=== PATIENT | male | born 1970 | race Caucasian/White ===

== ENCOUNTER 2017-12-11 14:41 | Emergency (ER) | payer MEDICAID ==
[2017-12-12] MEDS ORDERED: LORA1TAB PO (16:32)
== END 2017-12-11 14:50 | disposition left against medical advice (07) ==
LOC: ER 14:42
DX: Z53.21 Procedure and treatment not carried out due to patient leaving prior to being seen by health care provider (principal)

== ENCOUNTER 2019-04-09 21:08 | Emergency (ER) | payer MEDICAID ==
[~2019-04-09] VITALS: Ht 188 cm; Wt 8.2 kg
[2019-04-09 22:25] VITALS: BP 150/89
== END 2019-04-09 22:26 | disposition home or self-care (01) ==
LOC: ER 21:09
DX: F15.10 Other stimulant abuse, uncomplicated (principal); I10 Essential (primary) hypertension; F41.9 Anxiety disorder, unspecified; F10.99 Alcohol use, unspecified with unspecified alcohol-induced disorder; Z86.19 Personal history of other infectious and parasitic diseases; Z60.2 Problems related to living alone; Z59.0 Homelessness; Z56.0 Unemployment, unspecified; Y90.9 Presence of alcohol in blood, level not specified
CPT/HCPCS: 99281

== ENCOUNTER 2020-04-27 02:17 | Inpatient (IN) | payer MEDICAID ==
[~2020-04-27] VITALS: Ht 188 cm; Wt 88.0 kg
[2020-04-27] MEDS ORDERED: ondansetron/PF 4mg/2ml inj IV ONE (02:30)
[2020-04-27] MEDS ORDERED: normal saline 1000ML IV soln IVB ONE ×2 (02:30→03:20)
[2020-04-27] MEDS ORDERED: LORazepam 2 mg/ml vial IV ONE (02:35)
[2020-04-27 02:56] LABS: EOSINOPHILS % (AUTO) 0.1 % (0-6); MEAN CORPUSCULAR VOLUME 90.4 FL (78-98)
[2020-04-27 02:58] LABS: BASOPHILS # (AUTO) 0.1 X10'3 (0-0.2); BASOPHILS % (AUTO) 0.3 % (0-1); HEMATOCRIT 49.3 % (42.0-52.0); HEMOGLOBIN 16.5 g/dl (14.0-17.9); LYMPHOCYTES # (AUTO) 1.9 X10'3 (1.1-4.8); LYMPHOCYTES % (AUTO) 10.1 % (21-51); MEAN CORPUSCULAR HEMOGLOBIN 30.3 PG (27.0-31.0); MEAN CORPUSCULAR HGB CONC 33.5 g/dL (33.0-36.5); MEAN PLATELET VOLUME 9.2 FL (7.4-10.4); MONOCYTES # (AUTO) 2.1 X10'3 (0-0.9); MONOCYTES % (AUTO) 10.9 % (2-12); NEUTROPHILS # (AUTO) 14.9 X10'3 (1.8-7.7); NEUTROPHILS % (AUTO) 78.6 % (42-75); PLATELET COUNT 387 X10'3 (140-440); RED BLOOD COUNT 5.45 X10'6 (4.70-6.10); RED CELL DISTRIBUTION WIDTH 13.9 % (11.5-14.5)
[2020-04-27 03:13] LABS: ALANINE AMINOTRANSFERASE 58 U/L (12-78); ALBUMIN 5.5 G/DL (3.4-5.0); ALBUMIN/GLOBULIN RATIO 1.3 (1.1-1.5); ALKALINE PHOSPHATASE 94 IU/L (46-116); ANION GAP 14 (8-16); ASPARTATE AMINO TRANSFERASE 111 U/L (10-37); BILIRUBIN,TOTAL 0.5 MG/DL (0.1-1.0); BLOOD UREA NITROGEN 51 MG/DL (7-18); BUN/CREATININE RATIO 11.1 (5.4-32.0); CALCIUM 10.4 MG/DL (8.5-10.1); CHLORIDE 96 MMOL/L (99-107); CREATININE 4.58 MG/DL (0.60-1.10); GLUCOSE 196 MG/DL (70-104); LIPASE 109 U/L (73-393); POTASSIUM 4.1 MMOL/L (3.5-5.1); SODIUM 136 MMOL/L (135-145); TOTAL CARBON DIOXIDE 25.8 MMOL/L (24-32); TOTAL PROTEIN 9.8 G/DL (6.4-8.2); eGFR 14 ML/MIN
--- NOTE | 2020-04-27 03:45 | NUR ---
pt returned from ct. pt talking nonstop and is restless. he is polite and coopeerative.
[2020-04-27 04:48] LABS: URINE AMPHETAMINE SCREEN POSITIVE (Neg); URINE BARBITUATE SCREEN NEGATIVE (Neg); URINE BENZODIAZEPINES SCREEN NEGATIVE (Neg); URINE CANNABINOID SCREEN POSITIVE (Neg); URINE COCAINE SCREEN NEGATIVE (Neg); URINE METHADONE SCREEN NEGATIVE (Neg); URINE OPIATE SCREEN NEGATIVE (Neg); URINE PHENCYCLIDINE SCREEN NEGATIVE (Neg)
[2020-04-27] MEDS ORDERED: TRAZ-251 PO (04:55)
--- NOTE | 2020-04-27 04:58 | NUR ---
dr. monroy at bedside for admission. repeat labs drawn.
[2020-04-27] MEDS ORDERED: magnesium hydroxide 30ml (MOM) UD suspension PO PRN (05:15)
[2020-04-27] MEDS ORDERED: LORazepam 2 mg/ml vial IV PRN (05:15)
[2020-04-27] MEDS ORDERED: acetaminophen 325mg tablet PO PRN (05:15)
[2020-04-27] MEDS ORDERED: mag hydrox/Alum hydrox/simeth 30ml oral suspension PO PRN (05:15)
[2020-04-27] MEDS ORDERED: ondansetron/PF 4mg/2ml inj IV PRN (05:15)
--- NOTE | 2020-04-27 06:08 | NUR ---
PT ARRIVED ON THE FLOOR AT 0545 VIA W/C AND ONE ATTENDANT. PT IS "LOOPY" TALKING AND GIGGLING WITH LOUD VOICE. PT STATES FEELING NAUSEA, NO VOMITING AT THIS POINT. LEFT THE ROOM FOR LESS THAN A MINUTE AND CAME BACK TO FIND THE PT IS SOUNDLY SNORING/SLEEPING. THE PT STATES THAT HE SMOKED METH A COUPLE DAYS AGO. LABS ARE NOT BACK YET ON TOXICOLOGY. PT IS ADMITTED FOR JHOAN, AND ALSO REPORTED HAVING MORE THAN THREE DIARRHEA EPISODES. TWO AT HOME AND TWO AT HOSPITAL. WAS GIVEN ZOFRAN AND ATIVAN PER REPORT RN. PT ADMITS TO BEING AN ADDICT MOST OF HIS LIFE OF SOME KIND OR ANOTHER. LACTIC IS PENDING. CT OF ABD REPORTS POSSIBLE GASTRIC OBSTR. WILL CONTINUE TO MONITOR. REPORT REC'D FROM AQUILINO BAZAN. IN THE ED. REPORT GIVEN TO AQUILINO LOPES. DAY SHIFT.
[2020-04-27] MEDS: heparin, porcine 5000 units/ml vial SQ SCH ×2 (08:00→19:37)
[2020-04-27 10:00] VITALS: BP 142/74
[2020-04-27 15:58] LABS: BASOPHILS # (AUTO) 0.1 X10'3 (0-0.2); BASOPHILS % (AUTO) 0.9 % (0-1); EOSINOPHILS # (AUTO) 0.1 X10'3 (0-0.9); EOSINOPHILS % (AUTO) 0.7 % (0-6); HEMATOCRIT 40.8 % (42.0-52.0); HEMOGLOBIN 13.6 g/dl (14.0-17.9); LYMPHOCYTES # (AUTO) 1.5 X10'3 (1.1-4.8); LYMPHOCYTES % (AUTO) 15.9 % (21-51); MEAN CORPUSCULAR HEMOGLOBIN 30.3 PG (27.0-31.0); MEAN CORPUSCULAR HGB CONC 33.4 g/dL (33.0-36.5); MEAN CORPUSCULAR VOLUME 90.7 FL (78-98); MEAN PLATELET VOLUME 9.1 FL (7.4-10.4); MONOCYTES # (AUTO) 0.9 X10'3 (0-0.9); MONOCYTES % (AUTO) 10.3 % (2-12); NEUTROPHILS # (AUTO) 6.6 X10'3 (1.8-7.7); NEUTROPHILS % (AUTO) 72.2 % (42-75); PLATELET COUNT 269 X10'3 (140-440); RED CELL DISTRIBUTION WIDTH 13.8 % (11.5-14.5); WHITE BLOOD COUNT 9.2 X10'3 (4.5-11.0)
[2020-04-27] MEDS: normal saline 1000ml 1,000 ML IV SCH ×2 (16:17→19:37)
--- NOTE | 2020-04-27 18:25 | NUR ---
Patient in room ORTHO 4009. I have received report from Rlyand, and had the opportunity to ask questions and assume patient care.
[2020-04-27 22:00] VITALS: BP 139/77
[2020-04-28] MEDS: normal saline 1000ml 1,000 ML IV SCH ×2 (01:12→04:09)
[2020-04-28 06:00] VITALS: BP 153/78
--- NOTE | 2020-04-28 06:31 | NUR ---
Patient in room ORTHO 4009. I have received report from Basilio ROLLE and had the opportunity to ask questions and assume patient care.
--- NOTE | 2020-04-28 06:32 | NUR ---
Problems reprioritized. Patient report given Logan, questions answered & plan of care reviewed with .
[2020-04-28 06:44] LABS: BASOPHILS % (AUTO) 0.6 % (0-1); EOSINOPHILS # (AUTO) 0.1 X10'3 (0-0.9); EOSINOPHILS % (AUTO) 1.3 % (0-6); HEMATOCRIT 41.2 % (42.0-52.0); HEMOGLOBIN 13.8 g/dl (14.0-17.9); LYMPHOCYTES # (AUTO) 1.6 X10'3 (1.1-4.8); LYMPHOCYTES % (AUTO) 23.7 % (21-51); MEAN CORPUSCULAR HEMOGLOBIN 30.5 PG (27.0-31.0); MEAN CORPUSCULAR HGB CONC 33.5 g/dL (33.0-36.5); MEAN CORPUSCULAR VOLUME 91.1 FL (78-98); MEAN PLATELET VOLUME 9.2 FL (7.4-10.4); MONOCYTES # (AUTO) 0.7 X10'3 (0-0.9); MONOCYTES % (AUTO) 10.1 % (2-12); NEUTROPHILS # (AUTO) 4.3 X10'3 (1.8-7.7); NEUTROPHILS % (AUTO) 64.3 % (42-75); PLATELET COUNT 235 X10'3 (140-440); RED BLOOD COUNT 4.52 X10'6 (4.70-6.10); RED CELL DISTRIBUTION WIDTH 13.9 % (11.5-14.5); WHITE BLOOD COUNT 6.8 X10'3 (4.5-11.0)
[2020-04-28 06:56] LABS: ALANINE AMINOTRANSFERASE 47 U/L (12-78); ALBUMIN 3.3 G/DL (3.4-5.0); ALBUMIN/GLOBULIN RATIO 1.2 (1.1-1.5); ALKALINE PHOSPHATASE 54 IU/L (46-116); ANION GAP 9 (8-16); ASPARTATE AMINO TRANSFERASE 73 U/L (10-37); BILIRUBIN,TOTAL 0.5 MG/DL (0.1-1.0); BLOOD UREA NITROGEN 19 MG/DL (7-18); BUN/CREATININE RATIO 19.4 (5.4-32.0); CALCIUM 8.3 MG/DL (8.5-10.1); CHLORIDE 107 MMOL/L (99-107); CREATININE 0.98 MG/DL (0.60-1.10); GLUCOSE 101 MG/DL (70-104); POTASSIUM 4.5 MMOL/L (3.5-5.1); SODIUM 138 MMOL/L (135-145); TOTAL CARBON DIOXIDE 22.2 MMOL/L (24-32); eGFR 81 ML/MIN
[2020-04-28] MEDS: heparin, porcine 5000 units/ml vial SQ SCH (08:00)
[2020-04-28 13:00] VITALS: BP 162/91
== END 2020-04-28 15:20 | disposition home or self-care (01) | DRG 422 ==
LOC: ER 02:18 → ED HOLD 05:12 → ORTHO 4S 05:45
PROVIDERS: ADMIT Internal Medicine; ATTEND Internal Medicine
DX: E86.0 Dehydration (principal); N17.9 Acute kidney failure, unspecified; F15.129 Other stimulant abuse with intoxication, unspecified; F17.200 Nicotine dependence, unspecified, uncomplicated; I10 Essential (primary) hypertension; D72.829 Elevated white blood cell count, unspecified; F41.9 Anxiety disorder, unspecified; B19.20 Unspecified viral hepatitis C without hepatic coma; F12.90 Cannabis use, unspecified, uncomplicated; Z59.0 Homelessness
CPT/HCPCS: 36415; 74176; 80053; 80305; 83605; 83690; 85025; 99285; G0378; J1644; J2060; J2405; J7030

== ENCOUNTER 2020-05-10 16:13 | Emergency (ER) | payer MEDICAID ==
[~2020-05-10] VITALS: Ht 185.4 cm; Wt 88.6 kg
[~2020-05-10 16:13] MED LIST: TRAZ-251 PO
[2020-05-10 16:17] VITALS: BP 145/91
[2020-05-10] MEDS ORDERED: HYDR-4383 PO (16:44)
[2020-05-10] MEDS ORDERED: ONDA4TAB6 PO (16:44)
[2020-05-10] MEDS ORDERED: CEPH250T PO (16:44)
--- NOTE | 2020-05-10 17:07 | NUR ---
PT SEEN AND DC'D BY PROVIDER
== END 2020-05-10 17:06 | disposition home or self-care (01) ==
LOC: ER 16:14
DX: T22.212A Burn of second degree of left forearm, initial encounter (principal); T31.0 Burns involving less than 10% of body surface; I10 Essential (primary) hypertension; F41.9 Anxiety disorder, unspecified; F12.90 Cannabis use, unspecified, uncomplicated; F15.90 Other stimulant use, unspecified, uncomplicated; Z86.19 Personal history of other infectious and parasitic diseases; Z60.2 Problems related to living alone; Z59.0 Homelessness; Z56.0 Unemployment, unspecified; Z72.89 Other problems related to lifestyle; Z79.899 Other long term (current) drug therapy; X08.8XXA Exposure to other specified smoke, fire and flames, initial encounter; Y93.89 Activity, other specified; Y92.89 Other specified places as the place of occurrence of the external cause; Y99.8 Other external cause status
CPT/HCPCS: 99283

== ENCOUNTER 2020-10-12 13:52 | Emergency (ER) | payer MEDICAID ==
[~2020-10-12] VITALS: Ht 188 cm; Wt 93.2 kg
[~2020-10-12 13:52] MED LIST changes: +HYDR-4383 PO; +ONDA4TAB6 PO
== END 2020-10-12 16:53 | disposition left against medical advice (07) ==
LOC: ER 13:52
DX: R50.9 Fever, unspecified (principal); Z53.21 Procedure and treatment not carried out due to patient leaving prior to being seen by health care provider

== ENCOUNTER 2020-11-26 11:41 | Emergency (ER) | payer MEDICAID ==
[~2020-11-26] VITALS: Ht 185.4 cm; Wt 88.6 kg
--- NOTE | 2020-11-26 12:45 | NUR ---
Patient placed in green scrubs, belongings log on belonging log, locked up in overflow lockers #23. Wallet locked up with ER REG. room stripped of any dangerous equipment.
[2020-11-26 13:06] LABS: BASOPHILS # (AUTO) 0.1 X10'3 (0-0.2); BASOPHILS % (AUTO) 0.8 % (0-1); EOSINOPHILS # (AUTO) 0.3 X10'3 (0-0.9); EOSINOPHILS % (AUTO) 2.9 % (0-6); LYMPHOCYTES # (AUTO) 1.4 X10'3 (1.1-4.8); MEAN CORPUSCULAR HGB CONC 33.4 g/dL (33.0-36.5); MEAN CORPUSCULAR VOLUME 89.6 FL (78-98); MEAN PLATELET VOLUME 8.6 FL (7.4-10.4); MONOCYTES # (AUTO) 0.6 X10'3 (0-0.9); MONOCYTES % (AUTO) 7.4 % (2-12); NEUTROPHILS # (AUTO) 6.3 X10'3 (1.8-7.7); NEUTROPHILS % (AUTO) 72.9 % (42-75); PLATELET COUNT 277 X10'3 (140-440); RED BLOOD COUNT 4.69 X10'6 (4.70-6.10); RED CELL DISTRIBUTION WIDTH 13.6 % (11.5-14.5); WHITE BLOOD COUNT 8.7 X10'3 (4.5-11.0)
[2020-11-26 13:19] LABS: ALANINE AMINOTRANSFERASE 57 U/L (12-78); ALBUMIN 3.8 G/DL (3.4-5.0); ALBUMIN/GLOBULIN RATIO 1.1 (1.1-1.5); ALKALINE PHOSPHATASE 63 IU/L (46-116); ANION GAP 7 (8-16); ASPARTATE AMINO TRANSFERASE 44 U/L (10-37); BILIRUBIN,TOTAL 0.3 MG/DL (0.1-1.0); BLOOD UREA NITROGEN 11 MG/DL (7-18); BUN/CREATININE RATIO 12.2 (5.4-32.0); CALCIUM 8.7 MG/DL (8.5-10.1); CHLORIDE 104 MMOL/L (99-107); GLUCOSE 113 MG/DL (70-104); POTASSIUM 3.9 MMOL/L (3.5-5.1); SODIUM 138 MMOL/L (135-145); TOTAL PROTEIN 7.2 G/DL (6.4-8.2); eGFR 89 ML/MIN
[2020-11-26 13:28] LABS: ETHANOL < 0.010 GM/DL (0.0-0.010)
[2020-11-26] MEDS ORDERED: LORazepam 2 mg/ml vial IM ONE (14:30)
[2020-11-26] MEDS ORDERED: OLANZapine **IM** 10 mg inj. IM ONE (14:30)
[2020-11-26 15:00] LABS: CLARITY,URINE CLEAR (Clear); COLOR,URINE YELLOW (Yellow); GLUCOSE, URINE NEGATIVE (Neg); KETONES,URINE TRACE mg/dl (Neg); LEUKOCYTE ESTERASE ,URINE NEGATIVE (Neg); NITRITES, URINE NEGATIVE (Neg); OCCULT BLOOD,URINE NEGATIVE (Neg); PROTEIN,URINE NEGATIVE (Neg); UA COLLECTION TYPE URINAL
[2020-11-26 15:05] LABS: URINE AMPHETAMINE SCREEN POSITIVE (Neg); URINE BARBITUATE SCREEN NEGATIVE (Neg); URINE BENZODIAZEPINES SCREEN NEGATIVE (Neg); URINE CANNABINOID SCREEN NEGATIVE (Neg); URINE COCAINE SCREEN NEGATIVE (Neg); URINE METHADONE SCREEN NEGATIVE (Neg); URINE OPIATE SCREEN NEGATIVE (Neg); URINE PHENCYCLIDINE SCREEN NEGATIVE (Neg)
--- NOTE | 2020-11-26 15:22 | NUR ---
TC FROM LELA ROBERT AT [facility]. CONDITION REPORT GIVEN. PATIENT IS RESTING IN BED, DOZING NOW.
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
--- NOTE | 2020-11-26 23:48 | NUR ---
PT asleep on back, RR 18 even and unlabored
--- NOTE | 2020-11-27 02:00 | NUR ---
PT resting in bed, shifts around occasionally
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
--- NOTE | 2020-11-27 06:27 | NUR ---
Patient sleeping supine in bed, sleeping. No distress noted.
--- NOTE | 2020-11-27 07:27 | NUR ---
Patient up to bathroom, then back to bed sleeping now.
--- NOTE | 2020-11-27 08:05 | NUR ---
Patient sitting up eating breakfast.
--- NOTE | 2020-11-27 10:42 | NUR ---
Patient lying on left side sleeping. Respirations are even and nonlabored.
--- NOTE | 2020-11-27 11:13 | NUR ---
called reoprt to Kyler ROLLE at [facility]. will notify us if accepted.
--- NOTE | 2020-11-27 12:48 | NUR ---
Patient up pacing hallways. Made some phone calls, now using restroom. No distress noted.
[2020-11-27] MEDS ORDERED: OLANZapine 2.5MG tablet PO ONE (13:25)
--- NOTE | 2020-11-27 13:33 | NUR ---
Patient is pacing hallways. Pt. admits to A/H and states that he is "not doing well". Received order for Zyprexa 5 mg p.o., administered.
--- NOTE | 2020-11-27 14:30 | NUR ---
Patient is sleeping supine in bed. Respirations are even and nonlabored.
--- NOTE | 2020-11-27 17:19 | NUR ---
Patient is lying on left side sleeping in bed. Respirations are even and nonlabored.
--- NOTE | 2020-11-27 18:37 | NUR ---
RECIEVED REPORT FROM LAMAR ROLLE , OBTAINED CARE
--- NOTE | 2020-11-28 06:30 | NUR ---
Pt sleeping, respiration even and unlabored.
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
--- NOTE | 2020-11-28 13:21 | NUR ---
Pt ate all of lunch, then returned to sleep. This RN checked in and pt states "I'm okay, but I think I am really depressed." Pt denies AH currently.
--- NOTE | 2020-11-28 14:11 | NUR ---
Talked to Hector ROLLE at [facility] about pt.'s behavior while in ED, he will be discussing the information with at [facility] to determine if [facility] able to accept pt.
--- NOTE | 2020-11-28 16:25 | NUR ---
Pt is accepted to [facility] today. [facility] office states they will arrange a ride for after 7pm as that is when the facility has a room ready.
--- NOTE | 2020-11-28 17:15 | NUR ---
Pt pacing for a while then went back to bed to rest. Informed that he is going to [facility], pt states 'Okay, that is good."
[2020-11-28 19:33] VITALS: BP 170/89
[2020-11-28] MEDS ORDERED: triamcinolone acet 0.1% cream 15gm TP SCH (20:00)
== END 2020-11-28 19:35 ==
LOC: ER 11:42
DX: R45.850 Homicidal ideations (principal); Z20.822 Contact with and (suspected) exposure to COVID-19; F20.9 Schizophrenia, unspecified; F31.9 Bipolar disorder, unspecified; I10 Essential (primary) hypertension; F41.9 Anxiety disorder, unspecified; F12.90 Cannabis use, unspecified, uncomplicated; F15.90 Other stimulant use, unspecified, uncomplicated; Z86.19 Personal history of other infectious and parasitic diseases; Z72.89 Other problems related to lifestyle; Z60.2 Problems related to living alone; Z59.0 Homelessness; Z56.0 Unemployment, unspecified; Z79.899 Other long term (current) drug therapy
CPT/HCPCS: 36415; 80053; 80305; 80320; 81003; 84443; 85025; 87426; 96372; 99285; J2060; J3490

== ENCOUNTER 2020-12-28 06:46 | Emergency (ER) | payer MEDICAID ==
[~2020-12-28] VITALS: Ht 185.4 cm; Wt 79.5 kg
--- NOTE | 2020-12-28 07:11 | NUR ---
PT WAS PREVIOUSLY HERE AND THEN PLACED TO [facility] ON [address]. WHEN DISCHARGED FROM THERE, PT STATES, ' I STARTED DRINKING AND USING METH, I WAS WITHDRAWING FROM [facility] BECAUSE THEY DIDNT HAVE MY ANTIPSYCHOTIC MED.. I ALSO SMOKED FENTANYL 2 DAYS AGO. "
[2020-12-28 07:42] LABS: BASOPHILS # (AUTO) 0.1 X10'3 (0-0.2); BASOPHILS % (AUTO) 0.8 % (0-1); EOSINOPHILS # (AUTO) 0.2 X10'3 (0-0.9); EOSINOPHILS % (AUTO) 1.6 % (0-6); HEMATOCRIT 47.7 % (42.0-52.0); HEMOGLOBIN 15.8 g/dl (14.0-17.9); LYMPHOCYTES # (AUTO) 1.6 X10'3 (1.1-4.8); LYMPHOCYTES % (AUTO) 15.9 % (21-51); MEAN CORPUSCULAR HEMOGLOBIN 29.8 PG (27.0-31.0); MEAN CORPUSCULAR VOLUME 90.2 FL (78-98); MEAN PLATELET VOLUME 8.1 FL (7.4-10.4); MONOCYTES # (AUTO) 0.8 X10'3 (0-0.9); MONOCYTES % (AUTO) 7.6 % (2-12); NEUTROPHILS # (AUTO) 7.3 X10'3 (1.8-7.7); NEUTROPHILS % (AUTO) 74.1 % (42-75); PLATELET COUNT 318 X10'3 (140-440); RED BLOOD COUNT 5.29 X10'6 (4.70-6.10); RED CELL DISTRIBUTION WIDTH 14.3 % (11.5-14.5); WHITE BLOOD COUNT 9.9 X10'3 (4.5-11.0)
[2020-12-28 07:57] LABS: ALANINE AMINOTRANSFERASE 24 U/L (12-78); ALBUMIN 4.3 G/DL (3.4-5.0); ALBUMIN/GLOBULIN RATIO 1.2 (1.1-1.5); ALKALINE PHOSPHATASE 83 IU/L (46-116); ANION GAP 10 (8-16); ASPARTATE AMINO TRANSFERASE 18 U/L (10-37); BILIRUBIN,TOTAL 0.5 MG/DL (0.1-1.0); BLOOD UREA NITROGEN 15 MG/DL (7-18); BUN/CREATININE RATIO 19.2 (5.4-32.0); CALCIUM 9.5 MG/DL (8.5-10.1); CHLORIDE 105 MMOL/L (99-107); CREATININE 0.78 MG/DL (0.60-1.10); ETHANOL < 0.010 GM/DL (0.0-0.010); GLUCOSE 115 MG/DL (70-104); POTASSIUM 3.9 MMOL/L (3.5-5.1); SODIUM 141 MMOL/L (135-145); TOTAL CARBON DIOXIDE 25.8 MMOL/L (24-32); eGFR > 90 ML/MIN
[2020-12-28] MEDS ORDERED: LORazepam 1 MG tablet PO ONE (08:00)
[2020-12-28] MEDS ORDERED: risperiDONE 0.5mg tablet PO ONE (08:05)
[2020-12-28] MEDS ORDERED: OLANZapine **IM** 10 mg inj. IM ONE (08:05)
[2020-12-28] MEDS ORDERED: ziprasidone IM 20mg inj **IM only IM ONE (08:10)
[2020-12-28 12:09] LABS: URINE AMPHETAMINE SCREEN POSITIVE (Neg); URINE BARBITUATE SCREEN NEGATIVE (Neg); URINE BENZODIAZEPINES SCREEN NEGATIVE (Neg); URINE CANNABINOID SCREEN NEGATIVE (Neg); URINE COCAINE SCREEN NEGATIVE (Neg); URINE METHADONE SCREEN NEGATIVE (Neg); URINE OPIATE SCREEN NEGATIVE (Neg); URINE PHENCYCLIDINE SCREEN NEGATIVE (Neg)
--- NOTE | 2020-12-28 12:30 | NUR ---
Patient sleeping. No distress observed. continue to monitor.
--- NOTE | 2020-12-28 13:10 | NUR ---
breaking primary RN, pt is supine in bed, snoring loudly, no needs at this time
--- NOTE | 2020-12-28 15:09 | NUR ---
Patient sleeping on right side. No distress observed. Continue to monitor.
--- NOTE | 2020-12-28 16:40 | NUR ---
Patient is sleeping supine. No distress observed. Continue to monitor.
--- NOTE | 2020-12-28 18:02 | NUR ---
PACKET FAXED TO [facility]
--- NOTE | 2020-12-28 19:39 | NUR ---
One to one with the patient who was sleeping initially after eating 100% of his dinner. He was cooperative with the evening assessment. Currently denies that he is hearing voices. He was unable to give a medication list and stated he was seen at [facility] yesterday and that they had wanted him to start on new medications but he did not know what they were.
--- NOTE | 2020-12-28 20:10 | NUR ---
Attempted to call the [facility] office regarding patient's medications but there was no answer. He appears to be sleeping at this time and in no apparent distress.
--- NOTE | 2020-12-28 21:52 | NUR ---
The patient appears to be sleeping
--- NOTE | 2020-12-29 00:19 | NUR ---
The patient appears to be sleeping
--- NOTE | 2020-12-29 01:50 | NUR ---
The patient appears to be sleeping
[2020-12-29 06:00] VITALS: BP 143/91
--- NOTE | 2020-12-29 06:55 | NUR ---
Patient sleeping on left side. No distress observed. Continue to monitor.
--- NOTE | 2020-12-29 08:10 | NUR ---
RN awoke patient for breakfast but patient said thank you and went back to sleep. No distress observed. Continue to monitor.
--- NOTE | 2020-12-29 09:03 | NUR ---
Patient sitting up and eating breakfast. No distress observed. Continue to monitor.
--- NOTE | 2020-12-29 10:55 | NUR ---
Rigoberto IRAHETA, evaluating patient. No distress observed. Continue to monitor.
--- NOTE | 2020-12-29 11:40 | NUR ---
[facility] patient will be going to the [place] after lunch for a meeting at 1500 to get reinstated. Patient agreeable to this arrangement. Patient is calm and in no distress. Continue to monitor.
--- NOTE | 2020-12-29 13:10 | NUR ---
Patient eating lunch. No distress observed. Continue to monitoir.
== END 2020-12-29 13:38 | disposition home or self-care (01) ==
LOC: ER 06:47
DX: F23 Brief psychotic disorder (principal); Z20.822 Contact with and (suspected) exposure to COVID-19; F10.10 Alcohol abuse, uncomplicated; F15.10 Other stimulant abuse, uncomplicated; I10 Essential (primary) hypertension; F41.9 Anxiety disorder, unspecified; F31.9 Bipolar disorder, unspecified; F12.90 Cannabis use, unspecified, uncomplicated; F19.90 Other psychoactive substance use, unspecified, uncomplicated; Z86.19 Personal history of other infectious and parasitic diseases; Z72.89 Other problems related to lifestyle; Z60.2 Problems related to living alone; Z59.0 Homelessness; Z56.0 Unemployment, unspecified; Z79.899 Other long term (current) drug therapy
CPT/HCPCS: 36415; 80053; 80305; 80320; 85025; 87635; 96372; 99284; C9803; J3486

== ENCOUNTER 2021-03-21 19:17 | Emergency (ER) | payer MEDICAID ==
[~2021-03-21] VITALS: Ht 185.4 cm; Wt 84.0 kg
[2021-03-21 19:29] VITALS: BP 146/101
[2021-03-21] MEDS ORDERED: LIDOcaine 1% W/epiNEPHrine 1:200,000 10ml vial IJ ONE (22:20)
[2021-03-21] MEDS ORDERED: acetaminophen 325mg tablet PO ONE (22:25)
[2021-03-21] MEDS ORDERED: ibuprofen tablet 400 MG TABLET PO ONE (22:40)
[2021-03-21] MEDS ORDERED: SULF1TAB49 PO (23:39)
[2021-03-21] MEDS ORDERED: sulfamethoxazole/trimethoprim DS (800/160mg) tablet PO ONE (23:40)
== END 2021-03-21 23:59 | disposition home or self-care (01) ==
LOC: ER 19:18
DX: L02.211 Cutaneous abscess of abdominal wall (principal); I10 Essential (primary) hypertension; F41.9 Anxiety disorder, unspecified; F31.9 Bipolar disorder, unspecified; F20.9 Schizophrenia, unspecified; F12.90 Cannabis use, unspecified, uncomplicated; F15.90 Other stimulant use, unspecified, uncomplicated; F19.90 Other psychoactive substance use, unspecified, uncomplicated; Z86.19 Personal history of other infectious and parasitic diseases; Z72.89 Other problems related to lifestyle; Z60.2 Problems related to living alone; Z56.0 Unemployment, unspecified; Z59.0 Homelessness; Z79.2 Long term (current) use of antibiotics
CPT/HCPCS: 10060; 99283

== ENCOUNTER 2021-05-30 08:36 | Emergency (ER) | payer MEDICAID ==
[~2021-05-30] VITALS: Ht 185.4 cm; Wt 88.6 kg
[2021-05-30 08:37] VITALS: BP 149/104
== END 2021-05-30 11:24 | disposition home or self-care (01) ==
LOC: ER 08:36
DX: F15.10 Other stimulant abuse, uncomplicated (principal); I10 Essential (primary) hypertension; F12.90 Cannabis use, unspecified, uncomplicated; Z56.0 Unemployment, unspecified; Z85.9 Personal history of malignant neoplasm, unspecified; Z59.0 Homelessness; Z72.89 Other problems related to lifestyle
CPT/HCPCS: 99281

== ENCOUNTER 2021-06-20 06:26 | Emergency (ER) | payer MEDICAID ==
[~2021-06-20] VITALS: Ht 185.4 cm; Wt 88.0 kg
[2021-06-20 06:30] VITALS: BP 164/100
[2021-06-20] MEDS ORDERED: SULF1TAB45 PO (06:40)
== END 2021-06-20 07:33 | disposition home or self-care (01) ==
LOC: ER 06:26
DX: A49.02 Methicillin resistant Staphylococcus aureus infection, unspecified site (principal); I10 Essential (primary) hypertension; Z72.89 Other problems related to lifestyle; Z56.0 Unemployment, unspecified; Z59.00 Homelessness unspecified; Z79.899 Other long term (current) drug therapy
CPT/HCPCS: 99283

== ENCOUNTER 2021-06-22 15:53 | Emergency (ER) | payer MEDICAID ==
[~2021-06-22 15:53] MED LIST changes: -HYDR-4383 PO; -ONDA4TAB6 PO; +SULF1TAB45 PO; -TRAZ-251 PO
== END 2021-06-22 19:44 | disposition left against medical advice (07) ==
LOC: ER 15:53
DX: Z53.21 Procedure and treatment not carried out due to patient leaving prior to being seen by health care provider (principal)

== ENCOUNTER 2021-08-26 14:03 | Emergency (ER) | payer MEDICAID ==
[~2021-08-26] VITALS: Ht 185.4 cm; Wt 84.0 kg
[2021-08-26] MEDS ORDERED: OLANZapine 2.5MG tablet PO STA (14:09)
[2021-08-26] MEDS ORDERED: ARIPIPRAZOLE 10 MG TABLET PO STA (14:09)
[2021-08-26 14:38] LABS: BASOPHILS # (AUTO) 0.1 X10'3 (0-0.2); BASOPHILS % (AUTO) 0.8 % (0-1); EOSINOPHILS # (AUTO) 0.1 X10'3 (0-0.9); EOSINOPHILS % (AUTO) 1.4 % (0-6); HEMATOCRIT 42.6 % (42.0-52.0); HEMOGLOBIN 14.6 g/dl (14.0-17.9); LYMPHOCYTES # (AUTO) 1.5 X10'3 (1.1-4.8); LYMPHOCYTES % (AUTO) 19.3 % (21-51); MEAN CORPUSCULAR HEMOGLOBIN 30.4 PG (27.0-31.0); MEAN CORPUSCULAR HGB CONC 34.2 g/dL (33.0-36.5); MEAN CORPUSCULAR VOLUME 88.8 FL (78-98); MONOCYTES # (AUTO) 0.7 X10'3 (0-0.9); MONOCYTES % (AUTO) 9.1 % (2-12); NEUTROPHILS # (AUTO) 5.2 X10'3 (1.8-7.7); NEUTROPHILS % (AUTO) 69.4 % (42-75); PLATELET COUNT 349 X10'3 (140-440); RED CELL DISTRIBUTION WIDTH 15.1 % (11.5-14.5); WHITE BLOOD COUNT 7.6 X10'3 (4.5-11.0)
[2021-08-26 14:55] LABS: ALANINE AMINOTRANSFERASE 30 U/L (12-78); ALBUMIN 4.1 G/DL (3.4-5.0); ALBUMIN/GLOBULIN RATIO 1.1 (1.1-1.5); ALKALINE PHOSPHATASE 76 IU/L (46-116); ANION GAP 8 (8-16); ASPARTATE AMINO TRANSFERASE 25 U/L (10-37); BILIRUBIN,TOTAL 0.3 MG/DL (0.1-1.0); BLOOD UREA NITROGEN 14 MG/DL (7-18); BUN/CREATININE RATIO 14.1 (5.4-32.0); CALCIUM 9.3 MG/DL (8.5-10.1); CHLORIDE 102 MMOL/L (99-107); CREATININE 0.99 MG/DL (0.60-1.10); GLUCOSE 99 MG/DL (70-104); POTASSIUM 4.2 MMOL/L (3.5-5.1); SODIUM 138 MMOL/L (135-145); TOTAL CARBON DIOXIDE 27.8 MMOL/L (24-32); TOTAL PROTEIN 7.8 G/DL (6.4-8.2); eGFR 79 ML/MIN
[2021-08-26 15:04] LABS: ETHANOL < 0.010 GM/DL (0.0-0.010)
[2021-08-26 15:25] LABS: URINE AMPHETAMINE SCREEN POSITIVE (Neg); URINE BARBITUATE SCREEN NEGATIVE (Neg); URINE BENZODIAZEPINES SCREEN NEGATIVE (Neg); URINE CANNABINOID SCREEN POSITIVE (Neg); URINE COCAINE SCREEN NEGATIVE (Neg); URINE METHADONE SCREEN NEGATIVE (Neg); URINE OPIATE SCREEN NEGATIVE (Neg); URINE PHENCYCLIDINE SCREEN NEGATIVE (Neg)
[2021-08-26 15:44] LABS: CLARITY,URINE CLEAR (Clear); COLOR,URINE YELLOW (Yellow); GLUCOSE, URINE NEGATIVE (Neg); KETONES,URINE NEGATIVE (Neg); LEUKOCYTE ESTERASE ,URINE NEGATIVE (Neg); NITRITES, URINE NEGATIVE (Neg); OCCULT BLOOD,URINE NEGATIVE (Neg); PROTEIN,URINE NEGATIVE (Neg); UROBILINOGEN,URINE 0.2 E.U/dL (0.2-1.0)
[2021-08-26 15:46] LABS: UA COLLECTION TYPE CLN CATCH MIDSTREAM
--- NOTE | 2021-08-26 18:30 | NUR ---
ASSUMED CARE OF PT. PT COMFORTABLY SLEEPING ON HIS STOMACH. EQUAL RISE AND FALL OF CHEST
--- NOTE | 2021-08-26 20:00 | NUR ---
PT SHIFTED SIDES. CONTINUES TO SLEEP COMFORTABLY. NO COMPLAINTS
--- NOTE | 2021-08-26 21:00 | NUR ---
PT SLEEPING. EQUAL RISE AND FALL OF CHEST.
--- NOTE | 2021-08-26 23:00 | NUR ---
PT CONTINUES TO SLEEP COMFORTABLY. NO COMPLAINTS. EQUAL RISE AND FALL OF CHEST
--- NOTE | 2021-08-27 | NUR ---
PT SHIFTED ONTO HIS LEFT SIDE. SLEEPING. EQUAL RISE AND FALL OF CHEST.
--- NOTE | 2021-08-27 01:05 | NUR ---
PT SHIFTED ONTO HIS BACK. SLEEPING COMFORTABLY. EQUAL RISE AND FALL OF CHEST.
--- NOTE | 2021-08-27 02:00 | NUR ---
PT SLEEPING COMFORTABLY. EQUAL RISE AND FALL OF CHEST
--- NOTE | 2021-08-27 03:00 | NUR ---
PT TURNED TO RIGHT SIDE. SLEEPING. EQUAL RISE AND FALL OF CHEST.
--- NOTE | 2021-08-27 04:00 | NUR ---
PT TURNED TO HIS LEFT SIDE. SLEEPING COMFORTABLY.
--- NOTE | 2021-08-27 06:20 | NUR ---
Patient brought over from Main to ED OF 27. No report given. Patient sleeping. No distress observed. Continue to monitor.
[2021-08-27] MEDS ORDERED: LISI40TA13 PO (07:34)
--- NOTE | 2021-08-27 08:15 | NUR ---
RN awoke patient and gave him his breakfast. Patient verbalized understanding and went back to sleep. Continue to monitor.
--- NOTE | 2021-08-27 08:40 | NUR ---
PACKET FAXED TO [facility] OFFICE
[2021-08-27] MEDS: lisinopril 20mg tablet PO SCH (09:33)
--- NOTE | 2021-08-27 10:11 | NUR ---
Patient ate his breakfast a little earlier and is now back asleep. Continue to monitor.
--- NOTE | 2021-08-27 12:43 | NUR ---
Patient continues to sleep. RN called out patient's name but he did not awaken though RN saw him reajusting 1 minute before. Continue to monitor.
--- NOTE | 2021-08-27 13:20 | NUR ---
Patient eating lunch. No distress observed. Continue to monitor.
--- NOTE | 2021-08-27 15:46 | NUR ---
Patient continues to sleep. No distress observed. Continue to monitor.
--- NOTE | 2021-08-27 19:00 | NUR ---
The patient was awake for his evening meal and ate 100%, He was friendly and cooperative when approached for the evening assessment. He currently denies that he is hearing voices and stated the last time he heard voices was last evening. Visual hallucinations are denied. He denies feeling suicidal. He stated that he wants to live for his son and his family. He denies anxiety. When asked he described his mood as "hopeful" He stated that currently he is homeless and that he is not on probation or parole. He was unable to list his current medications but stated when he was at [facility] he was given an Abilify injection.
--- NOTE | 2021-08-27 21:00 | NUR ---
The patient appears to be sleeping
--- NOTE | 2021-08-27 22:43 | NUR ---
The patient appears to be sleeping
--- NOTE | 2021-08-28 00:18 | NUR ---
The patient appears to be sleeping
--- NOTE | 2021-08-28 02:06 | NUR ---
The patient is resting on his bed but appears to be restless
--- NOTE | 2021-08-28 04:27 | NUR ---
THe patient appears to be sleeping
--- NOTE | 2021-08-28 06:41 | NUR ---
Received Pt in bed sleeping w/o distress at the beginning of the shift.
[2021-08-28] MEDS: lisinopril 20mg tablet PO SCH (08:37)
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
--- NOTE | 2021-08-28 11:34 | NUR ---
Pt remains in bed sleeping w/o distress at this time.
--- NOTE | 2021-08-28 13:45 | NUR ---
Pt remains in bed awake and resting. Pt is calm and reports hearing things. Pt state he has no needs at this time.
--- NOTE | 2021-08-28 16:25 | NUR ---
Pt out of bed and walked around unit. Pt received snack and repoprted hearing a voice and checked a door. Pt states he wasn't trying to leave. Pt remains calm and cooperative, yet guarded and depressed.
--- NOTE | 2021-08-28 18:44 | NUR ---
Assumed care. Patient tearful and endorses AH. He is pleasant and cooperative with care; finished his meal prior to laying down.
--- NOTE | 2021-08-28 21:01 | NUR ---
Observed sleeping; no apparent distress observed and self repositionig.
--- NOTE | 2021-08-28 21:04 | NUR ---
Patient observed sleeping; no apparent distress observed.
--- NOTE | 2021-08-28 23:14 | NUR ---
Patient sleeping; no apparent distress observed and continues to self reposition.
--- NOTE | 2021-08-29 01:26 | NUR ---
Patient sleeping; no apparent distress and self repositoning.
--- NOTE | 2021-08-29 03:46 | NUR ---
Patient observed sleeping; self repositioning and no apparent distress.
--- NOTE | 2021-08-29 05:26 | NUR ---
Patient up to use the restroom; pleasant and no apparent distress.
[2021-08-29 06:30] VITALS: BP_DIAS 92
--- NOTE | 2021-08-29 07:01 | NUR ---
Patient sleeping on left side, no signs of distress
[2021-08-29 08:28] VITALS: BP_SYST 147
[2021-08-29] MEDS: lisinopril 20mg tablet PO SCH (08:28)
--- NOTE | 2021-08-29 09:36 | NUR ---
Substance Use Navigator at bed side, patient is on the phone with [facility]
--- NOTE | 2021-08-29 11:00 | NUR ---
Met with patient in regards to substance/alcohol use and to see if patient was interested in treatment options. Patient would like to go to an inpatient treatment facility. Patient and I called [facility] to start the process of getting him into a rehab. I will continue to work with patient to help him get into rehab.
--- NOTE | 2021-08-29 11:30 | NUR ---
Patient sitting on his bed making phone calls to Rehab facilities. Per patient "I had to leave a message".
--- NOTE | 2021-08-29 13:13 | NUR ---
Patient is sitting up in bed eatting lunch, patient is planning on discharging to his sister and will continue to look for a rehab on his own for his substance use.
--- NOTE | 2021-08-29 14:07 | NUR ---
Patients hold is up @ 1344, patient is pacing at this time "I am just ready to go Ican do all this from home".
--- NOTE | 2021-08-29 15:10 | NUR ---
Patient has recieved discharge orders, [facility] ETA [id number]. Patient is pacing and anxious to go to his car so that he can stay at a friends house while he calls rehabs for inpatient treatment.
== END 2021-08-29 15:23 | disposition home or self-care (01) ==
LOC: ER 14:03
DX: F23 Brief psychotic disorder (principal); Z20.822 Contact with and (suspected) exposure to COVID-19; R45.851 Suicidal ideations; R45.850 Homicidal ideations; R45.1 Restlessness and agitation; I10 Essential (primary) hypertension; F41.9 Anxiety disorder, unspecified; F31.9 Bipolar disorder, unspecified; F12.90 Cannabis use, unspecified, uncomplicated; F15.90 Other stimulant use, unspecified, uncomplicated; F19.90 Other psychoactive substance use, unspecified, uncomplicated; Z86.19 Personal history of other infectious and parasitic diseases; Z86.14 Personal history of Methicillin resistant Staphylococcus aureus infection; Z72.89 Other problems related to lifestyle; Z60.2 Problems related to living alone; Z56.0 Unemployment, unspecified; Z59.00 Homelessness unspecified
CPT/HCPCS: 36415; 80053; 80305; 80320; 81003; 84443; 85025; 87635; 99285; C9803

== ENCOUNTER → 2024-04-02 | Outpatient (CLI) | payer MEDICAID ==
[~2024-04-02] MED LIST changes: +LISI40TA13 PO; -SULF1TAB45 PO
== END | disposition home or self-care (01) ==
LOC: RAD 12:02
PROVIDERS: ATTEND Physician Assistant
DX: M25.561 Pain in right knee (principal)
CPT/HCPCS: 73564

== ENCOUNTER 2025-02-02 22:39 | Emergency (ER) | payer MEDICAID ==
[~2025-02-02] VITALS: Ht 185.4 cm; Wt 88.5 kg
[2025-02-02 22:52] VITALS: BP 161/104; PULSE 71; RESP 18; O2SAT 95
[2025-02-03 00:33] LABS: BILIRUBIN,URINE SMALL (Neg); CLARITY,URINE CLEAR (Clear); GLUCOSE, URINE 100 mg/dl (Neg); KETONES,URINE 15 mg/dl (Neg); LEUKOCYTE ESTERASE ,URINE NEGATIVE (Neg); NITRITES, URINE NEGATIVE (Neg); OCCULT BLOOD,URINE NEGATIVE (Neg); PROTEIN,URINE 30 mg/dl (Neg); UROBILINOGEN,URINE >=8.0 E.U/dL (0.2-1.0)
[2025-02-03 00:38] LABS: COLOR,URINE ORANGE (Yellow); UA COLLECTION TYPE CLN CATCH MIDSTREAM
[2025-02-03 00:40] LABS: BACTERIA,URINE NONE SEEN /HPF (Neg); MUCUS STRANDS MODERATE /LPF (Neg); RBC,URINE 0-2 /HPF (0-2); SQUAMOUS EPITHELIAL CELL,UR NONE SEEN /LPF (FEW); WBC,URINE 0-4 /HPF (0-4)
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
[2025-02-03 03:11] LABS: BASOPHILS # (AUTO) 0.1 X10'3 (0-0.2); EOSINOPHILS # (AUTO) 0.1 X10'3 (0-0.9); EOSINOPHILS % (AUTO) 1.5 % (0-6); LYMPHOCYTES # (AUTO) 1.3 X10'3 (1.1-4.8); MEAN CORPUSCULAR VOLUME 86.8 FL (78-98); MONOCYTES # (AUTO) 0.5 X10'3 (0-0.9); NEUTROPHILS # (AUTO) 4.7 X10'3 (1.8-7.7); WHITE BLOOD COUNT 6.7 X10'3 (4.5-11.0)
[2025-02-03 03:13] LABS: BASOPHILS % (AUTO) 1.1 % (0-1); HEMATOCRIT 42.9 % (42.0-52.0); HEMOGLOBIN 14.7 g/dl (14.0-17.9); LYMPHOCYTES % (AUTO) 19.5 % (21-51); MEAN CORPUSCULAR HEMOGLOBIN 29.7 PG (27.0-31.0); MEAN CORPUSCULAR HGB CONC 34.3 g/dL (33.0-36.5); MEAN PLATELET VOLUME 8.4 FL (7.4-10.4); NEUTROPHILS % (AUTO) 70.9 % (42-75); PLATELET COUNT 303 X10'3 (140-440); RED BLOOD COUNT 4.94 X10'6 (4.70-6.10); RED CELL DISTRIBUTION WIDTH 14.1 % (11.5-14.5)
[2025-02-03 03:26] LABS: ALANINE AMINOTRANSFERASE 44 U/L (12-78); ALBUMIN 3.8 G/DL (3.4-5.0); ALBUMIN/GLOBULIN RATIO 1.2 (1.1-1.5); ALKALINE PHOSPHATASE 69 IU/L (46-116); ANION GAP 9 (8-16); ASPARTATE AMINO TRANSFERASE 45 U/L (10-37); BILIRUBIN,TOTAL 0.5 MG/DL (0.1-1.0); BLOOD UREA NITROGEN 12 MG/DL (7-18); CALCIUM 8.9 MG/DL (8.5-10.1); CHLORIDE 105 MMOL/L (99-107); CREATININE 1.09 MG/DL (0.60-1.10); GLUCOSE 115 MG/DL (70-104); POTASSIUM 4.4 MMOL/L (3.5-5.1); SODIUM 140 MMOL/L (135-145); TOTAL CARBON DIOXIDE 26.5 MMOL/L (24-32); TOTAL PROTEIN 6.9 G/DL (6.4-8.2); eCRCL 86 ML/MIN; eGFR 70 ML/MIN
[2025-02-03 03:52] VITALS: TEMP 98.3
== END 2025-02-03 04:13 | disposition home or self-care (01) ==
LOC: ER 22:39
DX: R82.2 Biliuria (principal); F20.9 Schizophrenia, unspecified; F31.9 Bipolar disorder, unspecified; I10 Essential (primary) hypertension
CPT/HCPCS: 36415; 80053; 81001; 85025; 99283

== ENCOUNTER 2025-02-25 14:54 | Emergency (ER) | payer MEDICAID ==
[~2025-02-25] VITALS: Ht 185.4 cm; Wt 88.2 kg
[2025-02-25 15:16] VITALS: BP 170/101; PULSE 56; RESP 16; TEMP 97.7; O2SAT 99
--- NOTE | 2025-02-25 17:02 | Physician Documentation ---
History of Present Illness ~ Chief Complaint: Medical Clearance Stated Complaint: MED CLEARANCE Time Seen by MD: 15:58 Primary Medical Doctor: mandie @ [facility] Patient is seen today for detox medical clearance. Patient states he is [facility] and methamphetamine illicit drugs. Patient states he stopped drinking alcohol three days ago and denies any current withdrawal symptoms and denies having withdrawal symptoms from alcohol when he stops drinking. Patient denies any heavy drinking of alcohol. He states his main drug of choice is methamphetamines. Patient denies any current chest pain or shortness of breath or abdominal pain or nausea, vomiting, diarrhea. Tetanus within 5 years?: Yes Medication Reconciliation Allergies: Coded Allergies: No Known Allergies (Unverified , 02/25/25) Scheduled Lisinopril* (Lisinopril*), 1 TAB PO DAILY, (Reported) Past Medical History Past Medical History: Hypertension, Hepatitis C, Cellulitis, MRSA Abscess, An xiety, Bipolar, Schizophrenia Past Surgical History: no surgical history Alcohol Use: Alcoholic Drug Use: marijuana, methamphetamine, other Lives with: Alone Lives In: Homeless Occupation: unemployed Review of Systems Constitutional: Denies: chills, fever, weakness Eyes: Denies: pain, blurred vision ENT: Denies: ear pain, nose pain, throat pain, mouth pain Respiratory: Denies: cough, shortness of breath Cardiovascular: Denies: chest pain, palpitations Gastrointestinal: Denies: abdominal pain, nausea, vomiting Genitourinary: Denies: burning, dysuria Male Genitalia: Denies: penile discharge, testicular pain Neurological: Denies: headache, dizziness Musculoskeletal: Denies: pain, swelling Integumentary: Denies: rash, lesions Allergic/Immunologic: Denies: hives, itching Hematologic/Lymphatic: Denies: no symptoms reported Psychiatric: Denies: depression, anxiety Physical Exam Vital Signs: Temperature: 97.7, Source: Temporal, Heart Rate: 56, Respiratory Rate: 16, BP: 170/101, Pulse Oximetry: 99, Weight: 88.200 Oxygen Flow Rate: 0 Physical Exam General: Awake and Alert, no acute distress. HEENT: Conjunctiva pink, Sclera clear, Mucus Membranes moist. Neck: Supple without masses and tenderness. Resp: Unlabored. Lungs clear to auscultation bilaterally. Heart: Regular Rate and rhythm, normal S1 and S2 without murmur, rub or gallop. Abdomen: Soft and non tender no organomegaly Extremities: No cyanosis,clubbing or edema. Skin: Warm and Dry. Progress Results/Orders Results/Orders Vital Signs 02/25/25 15:16 Temp 97.7 Pulse 56 Resp 16 B/P (MAP) 170/101 Pulse Ox 99 O2 Flow Rate 0 Medical Decision Making Findings Patient is seen today for detox medical clearance. Patient states he is going [facility] from alcohol and methamphetamine illicit drugs. Patient states he stopped drinking alcohol three days ago and denies any current withdrawal symptoms and denies having withdrawal symptoms from alcohol when he stops drinking. Patient denies any heavy drinking of alcohol. He states his main drug of choice is methamphetamines. Patient denies any current chest pain or shortness of breath or abdominal pain or nausea, vomiting, diarrhea. Patient is medically cleared for entrance into [facility]. Patient will return to ED with any worsening, concerning or changing symptoms. Departure Disposition: 01 HOME / SELF CARE / HOMELESS Impression: Primary Impression: Methamphetamine abuse Additional Impression: General medical exam Condition: Stable Discharge Instructions: Medical Screening Exam Additional Instructions: Patient is medically cleared for entrance into [facility]. Patient will return to ED with any worsening, concerning or changing symptoms. Referrals: NO PRIMARY CARE PROVIDER (PCP) Signature Scribe Signature: No scribe Attestation: No scribe TALI CORTES PAC Feb 25, 2025 17:02
== END 2025-02-25 17:29 | disposition home or self-care (01) ==
LOC: ER 14:55
DX: F15.10 Other stimulant abuse, uncomplicated (principal); I10 Essential (primary) hypertension; F31.9 Bipolar disorder, unspecified; F20.9 Schizophrenia, unspecified; F10.90 Alcohol use, unspecified, uncomplicated; F12.90 Cannabis use, unspecified, uncomplicated; F19.90 Other psychoactive substance use, unspecified, uncomplicated; Z56.0 Unemployment, unspecified; Z59.00 Homelessness unspecified; Z60.2 Problems related to living alone; Y90.9 Presence of alcohol in blood, level not specified
CPT/HCPCS: 99281